=== PATIENT | female | born 2000 | race African-American/Black ===

== ENCOUNTER 2019-03-11 00:19 | Inpatient (IN) | payer MEDICAID ==
[~2019-03-11] VITALS: Ht 139.7 cm; Wt 54.4 kg
[2019-03-11] MEDS ORDERED: DEXT 5%/LR + PITOCIN 20UNITS/L 1,000 ML IV SCH (01:02)
[2019-03-11] MEDS ORDERED: METHYLERGONOVINE MALEATE 0.2 MG/ML IM PRN (01:15)
[2019-03-11] MEDS ORDERED: PENICILLIN G POTASSIUM 5 MMU in DEXT 5% WATER 100 ML IV SCH (01:15)
[2019-03-11] MEDS ORDERED: CARBOPROST TROMETHAMINE 250 MCG/ML AMPUL IM PRN (01:15)
[2019-03-11] MEDS ORDERED: NALOXONE HCL 0.4 MG/ML 1ML VIAL IM PRN (01:15)
[2019-03-11] MEDS ORDERED: TERBUTALINE SULFATE 1MG/ML VIAL SUBCUT PRN (01:15)
[2019-03-11 01:25] LABS: CHLORIDE 108 mEq/L (98-107)
[2019-03-11] MEDS ORDERED: PNV1TABL50 MT (01:26)
[2019-03-11 01:31] LABS: BASOPHILS % 0.2 % (0.0-2.0); EOSINOPHILS % 0.5 % (0.0-5.0); HEMATOCRIT. 24.5 % (36.0-48.0); HEMOGLOBIN. 7.3 g/dL (12.0-16.0); LYMPHOCYTES % 28.4 % (20.0-50.0); MEAN CORPUSCULAR HEMOGLOBIN 19.2 pg (28.0-32.0); MEAN CORPUSCULAR VOLUME 64.7 fL (81.0-99.0); MEAN PLATELET VOLUME 8.8 fl (7.4-10.4); MONOCYTES % 5.2 % (2.0-8.0); NEUTROPHILS % 65.7 % (40.0-76.0); PLATELET 277 x1000/uL (130-400); RED BLOOD CELL COUNT 3.79 mill/uL (4.2-5.4); RED CELL DISTRIBUTION WIDTH 21.1 % (11.6-14.6)
[2019-03-11 01:33] LABS: CLARITY URINE CLEAR (CLEAR); COLOR URINE YELLOW (YELLOW); KETONES URINE NEGATIVE (NEGATIVE); LEUKOCYTE ESTERASE URINE NEGATIVE (NEGATIVE); NITRITE URINE NEGATIVE (NEGATIVE); OCCULT BLOOD URINE NEGATIVE (NEGATIVE); PROTEIN URINE NEGATIVE (NEGATIVE); SPECIFIC GRAVITY URINE 1.002 (1.005-1.030); UROBILINOGEN URINE 0.2 E.U./dL (0.2-1.0)
[2019-03-11 01:39] LABS: INR 0.9; PARTIAL THROMBOPLASTIN TIME 22.8 sec (23.4-31.0)
[2019-03-11] MEDS: LACTATED RINGERS 1,000 ML IV SCH ×2 (02:09→08:30)
[2019-03-11 02:10] LABS: *AMPHETAMINES SCREEN URINE NEGATIVE (NEGATIVE); *BARBITURATES SCREEN URINE NEGATIVE (NEGATIVE); *BENZODIAZEPINES SCREEN URINE NEGATIVE (NEGATIVE); *COCAINE SCREEN URINE NEGATIVE (NEGATIVE)
[2019-03-11 02:11] LABS: CANNABINOID URINE SCREEN NEGATIVE (NEGATIVE); METHADONE URINE SCREEN NEGATIVE (NEGATIVE); OPIATES URINE SCREEN NEGATIVE (NEGATIVE); PHENCYCLIDINE URINE SCREEN NEGATIVE (NEGATIVE)
[2019-03-11] MEDS: BUTORPHANOL TARTRATE 2 MG/ML VIAL IV PRN ×2 (02:36→10:40)
[2019-03-11 02:47] LABS: PLATELET ESTIMATE NORMAL
[2019-03-11 02:58] LABS: HEPATITIS B SURFACE ANTIGEN NEGATIVE
[2019-03-11] MEDS ORDERED: PENICILLIN G POTASSIUM 2.5 MMU in DEXTROSE 5% WATER 50 ML IV SCH (05:00)
[2019-03-11] MEDS ORDERED: CITRIC ACID/SODIUM CITRATE SOLN 30ML UDC PO SCH (07:15)
[2019-03-11] MEDS ORDERED: PHENYLEPHRINE HCL 10 MG/ML 1ML (IV VIAL) IV ONE (07:27)
[2019-03-11] MEDS ORDERED: MORPHINE SULFATE/PF 1MG/ML 10ML AMP ONE (07:27)
[2019-03-11] MEDS ORDERED: FENTANYL CITRATE/PF 50MCG/ML 2ML VIAL ONE (07:27)
[2019-03-11] MEDS ORDERED: GLYCOPYRROLATE 0.2 MG/ML 2ML VIAL ONE (07:28)
[2019-03-11] MEDS ORDERED: ONDANSETRON HCL 4MG/2ML INJ ONE (07:28)
[2019-03-11] MEDS ORDERED: OXYTOCIN 10 UNITS/ML 1ML ONE (07:28)
[2019-03-11] MEDS ORDERED: EPHEDRINE SULFATE 50MG/ML VIAL ONE (07:28)
[2019-03-11] MEDS ORDERED: BUPIVACAINE HCL/DEXTROSE/PF 0.75% 2ML AMP INJ ONE (07:28)
[2019-03-11] MEDS ORDERED: CEFAZOLIN SODIUM 1000MG/VIAL ONE (07:29)
[2019-03-11] MEDS ORDERED: DIPHENHYDRAMINE 50MG/ML VIAL ONE (09:24)
[2019-03-11] MEDS ORDERED: LACTATED RINGERS 1,000 ML IV SCH (09:30)
[2019-03-11] MEDS ORDERED: ONDANSETRON HCL 4MG/2ML INJ IV PRN (09:45)
[2019-03-11] MEDS ORDERED: BUTORPHANOL TARTRATE 2 MG/ML VIAL IV PRN (09:45)
[2019-03-11] MEDS ORDERED: HYDROCODONE/ACETAMINOPHEN 5/325MG TABLET PO PRN (09:45)
[2019-03-11] MEDS ORDERED: KETOROLAC 30MG/ML VIAL IV SCH (09:45)
[2019-03-11] MEDS ORDERED: DIPHENHYDRAMINE 50MG/ML VIAL IV PRN (09:45)
[2019-03-11] MEDS ORDERED: BISACODYL 10MG SUPP PR PRN (09:45)
[2019-03-11] MEDS ORDERED: IBUPROFEN 400MG TABLET PO PRN (09:45)
[2019-03-11] MEDS ORDERED: KETOROLAC 30MG/ML VIAL IV PRN (09:45)
[2019-03-11] MEDS ORDERED: INFLUENZA VIRUS VACCINE(AFLURIA) 0.5ML SYR IM ONE (09:45)
[2019-03-11] MEDS ORDERED: DIPHENHYDRAMINE 25MG CAPSULE PO PRN (09:45)
[2019-03-11] MEDS ORDERED: TETANUS, DIPHTHERIA, PERTUSSIS VAC/PF 0.5ML (>7YR OLD) IM ONE (09:45)
[2019-03-11] MEDS ORDERED: NALOXONE HCL 0.4 MG/ML 1ML VIAL IV PRN (09:45)
[2019-03-11] MEDS ORDERED: LANOLIN OINT 0.25 GM TUBE TOP PRN (09:45)
[2019-03-11 11:25] VITALS: BP 105/66
[2019-03-11 12:00] VITALS: BP 106/56
[2019-03-11 14:55] VITALS: BP 90/50
[2019-03-11] MEDS: DEXT 5%/LR + PITOCIN 20UNITS/L 1,000 ML IV SCH (17:41)
[2019-03-11] MEDS: SIMETHICONE 80MG TABLET CHEW PO SCH ×2 (17:44→21:00)
[2019-03-11 19:45] VITALS: BP 103/61
[2019-03-12] VITALS: BP 103/62
[2019-03-12] MEDS: DEXT 5%/LR + PITOCIN 20UNITS/L 1,000 ML IV SCH (02:09)
[2019-03-12 04:00] VITALS: BP 101/60
[2019-03-12 07:05] LABS: BASOPHILS % 0.2 % (0.0-2.0); EOSINOPHILS % 0.3 % (0.0-5.0); HEMATOCRIT. 23.7 % (36.0-48.0); LYMPHOCYTES % 14.8 % (20.0-50.0); MEAN CORPUSCULAR HEMOGLOBIN 18.9 pg (28.0-32.0); MEAN CORPUSCULAR VOLUME 64.7 fL (81.0-99.0); MEAN PLATELET VOLUME 8.4 fl (7.4-10.4); MONOCYTES % 4.9 % (2.0-8.0); NEUTROPHILS % 79.8 % (40.0-76.0); PLATELET 255 x1000/uL (130-400); RED BLOOD CELL COUNT 3.67 mill/uL (4.2-5.4); RED CELL DISTRIBUTION WIDTH 21.1 % (11.6-14.6)
[2019-03-12 07:11] LABS: HEMOGLOBIN. 6.9 g/dL (12.0-16.0)
[2019-03-12 08:00] VITALS: BP 99/62
[2019-03-12] MEDS: SIMETHICONE 80MG TABLET CHEW PO SCH ×4 (08:00→21:09)
[2019-03-12] MEDS: PRENATAL VIT/FE FUMARATE/FA TABLET PO SCH (08:22)
[2019-03-12] MEDS: FERROUS SULFATE 325MG TABLET PO SCH ×2 (08:22→15:41)
[2019-03-12] MEDS: IBUPROFEN 800MG TABLET PO PRN ×3 (08:23→21:09)
[2019-03-12 12:00] VITALS: BP 98/66
[2019-03-12 16:00] VITALS: BP 114/62
[2019-03-12 20:00] VITALS: BP 98/58
[2019-03-12] MEDS: DOCUSATE SODIUM 100MG CAPSULE PO SCH (21:11)
[2019-03-13] VITALS (13 sets, daily range): BP systolic 98–109; BP diastolic 50–64
[2019-03-13] MEDS: IBUPROFEN 800MG TABLET PO PRN ×3 (03:27→17:48)
[2019-03-13] MEDS: PRENATAL VIT/FE FUMARATE/FA TABLET PO SCH (08:50)
[2019-03-13] MEDS: SIMETHICONE 80MG TABLET CHEW PO SCH ×4 (08:50→20:55)
[2019-03-13] MEDS: FERROUS SULFATE 325MG TABLET PO SCH ×3 (08:50→17:48)
[2019-03-13] MEDS ORDERED: DIPHENHYDRAMINE 25MG CAPSULE PO NR (12:00)
[2019-03-13] MEDS ORDERED: MEDROXYPROGESTERONE ACETATE 150MG/ML VIAL IM NR (12:00)
[2019-03-13] MEDS ORDERED: ACETAMINOPHEN 325MG TABLET PO NR (12:00)
[2019-03-13] MEDS: DOCUSATE SODIUM 100MG CAPSULE PO SCH (20:52)
[2019-03-13 21:23] LABS: BASOPHILS % 0.3 % (0.0-2.0); EOSINOPHILS % 1.2 % (0.0-5.0); HEMATOCRIT. 31.4 % (36.0-48.0); HEMOGLOBIN. 9.8 g/dL (12.0-16.0); MEAN CORPUSCULAR HEMOGLOBIN 21.8 pg (28.0-32.0); MEAN CORPUSCULAR VOLUME 69.6 fL (81.0-99.0); MEAN PLATELET VOLUME 8.5 fl (7.4-10.4); MONOCYTES % 5.5 % (2.0-8.0); PLATELET 289 x1000/uL (130-400); RED CELL DISTRIBUTION WIDTH 24.6 % (11.6-14.6)
[2019-03-14] MEDS: IBUPROFEN 800MG TABLET PO PRN (05:26)
[2019-03-14 06:00] VITALS: BP 103/59
[2019-03-14 08:00] VITALS: BP 111/72
[2019-03-14] MEDS: FERROUS SULFATE 325MG TABLET PO SCH (08:58)
[2019-03-14] MEDS: SIMETHICONE 80MG TABLET CHEW PO SCH (08:58)
[2019-03-14] MEDS: PRENATAL VIT/FE FUMARATE/FA TABLET PO SCH (08:58)
== END 2019-03-14 12:00 | disposition home or self-care (01) | DRG 540 ==
LOC: 8 EST LDRP 00:19 → OBSVTOIN 00:19 → 8EST 11:55
PROVIDERS: ADMIT Specialist; ATTEND Specialist
PROC: 10D00Z1 Extraction of Products of Conception, Low, Open Approach (ICD-10-PCS; principal; 2019-03-11)
PROC: 30233N1 Transfusion of Nonautologous Red Blood Cells into Peripheral Vein, Percutaneous Approach (ICD-10-PCS; 2019-03-13)
DX: O34.211 Maternal care for low transverse scar from previous cesarean delivery (principal); D64.9 Anemia, unspecified; O69.81X0 Labor and delivery complicated by cord around neck, without compression, not applicable or unspecified; O99.02 Anemia complicating childbirth; Z37.0 Single live birth; Z3A.37 37 weeks gestation of pregnancy
CPT/HCPCS: 36415; 80305; 84550; 85384; 86592; 86703; 86762; 86850; 86900; 86920; 87340; 88307; 99281; J0595; J0690; J1050; J1200; J1885; J2274; J2370; J2405; J2540; J2590; J3010; J3105; J3490; J7060; J7120; P9016; Q0163; A4315